=== PATIENT | male | born 1950 | race Caucasian/White ===

== ENCOUNTER 2025-05-08 13:04 | Inpatient (IN) | payer MEDICARE ==
[~2025-05-08] VITALS: Ht 188 cm; Wt 95.7 kg
[2025-05-08 14:04] LABS: PLATELET COUNT (AUTO) 203 K/uL (150-450); RED BLOOD CELL COUNT(AUTO) 4.13 MIL/uL (4.5-6.0); RED CELL DISTRIBUTION WIDTH 14.4 % (11.5-15.0); WHITE BLOOD COUNT (AUTO) 6.6 K/uL (4.3-11.0)
[2025-05-08 14:12] LABS: CALCIUM, SERUM 8.5 mg/dL (8.5-10.1); CREATININE 1.3 mg/dL (0.6-1.3); SODIUM SERUM 142 mmol/L (136-145); UREA NITROGEN, BLOOD 17 mg/dL (7-18)
[2025-05-08 14:20] LABS: INR 1.06 (0.91-1.10)
[2025-05-08 14:25] LABS: ASPARTATE AMINOTRANSFERASE 17 U/L (15-37); NT-PRO BNP 79 pg/mL (0-125); TOTAL PROTEIN, SERUM 8.0 g/dL (6.4-8.2)
[2025-05-08] MEDS: IV NS 0.9% 500 ML BAG IV ONE (14:35)
[2025-05-08] MEDS: CEFEPIME 1 GM in IV D5W 50 ML IV ONE (14:54)
[2025-05-08] MEDS ORDERED: METH40TA PO (15:16)
[2025-05-08] MEDS: VANCOMYCIN 1 GM in IV D5W 250 ML IV ONE (15:25)
[2025-05-08] MEDS: ENOXAPARIN SODIUM 100 MG/ML DISP.SYRIN SQ ONE (15:25)
[2025-05-08 16:00] VITALS: BP 152/80; TEMP 98.2; O2SAT 99
[2025-05-08 16:01] LABS: APPEARANCE,URINE CLEAR (CLEAR); BLOOD, URINE TRACE-INTA Ery/uL (NEGATIVE); LEUKOCYTE ESTERASE ,URINE NEGATIVE (NEGATIVE); NITRITE, URINE NEGATIVE (NEGATIVE); UGLUCOSE NEGATIVE (NEGATIVE)
[2025-05-08 16:26] LABS: ADD URINE CULTURE NO; SQUAMOUS EPITHELIAL CELL,UR Few /HPF (None Seen)
[2025-05-08] MEDS ORDERED: DOSING PER PHARMACY-VANCOMYCIN IV XX PRN (16:30)
[2025-05-08] MEDS ORDERED: MAG HYDROX/AL HYDROX/SIMETH 30 ML UDC PO PRN (16:30)
[2025-05-08] MEDS ORDERED: Z GUARD REMEDY 4 OZ OINT TP PRN (16:30)
[2025-05-08] MEDS ORDERED: ONDANSETRON HCL/PF 4 MG/2 ML VIAL IVP PRN (16:30)
[2025-05-08] MEDS ORDERED: MAGNESIUM HYDROXIDE 30 ML UDC PO PRN (16:30)
[2025-05-08 18:00] VITALS: BP 135/78; TEMP 98.2; O2SAT 99
[2025-05-08] MEDS: VANCOMYCIN 500 MG in IV D5W 100ml IV ONE (18:38)
[2025-05-08 20:00] VITALS: BP 160/73; TEMP 97.7; O2SAT 99
[2025-05-08] MEDS ORDERED: MORPHINE SULFATE INJ 2 MG/ML DISP.SYRIN IV PRN (23:30)
[2025-05-09] MEDS: ACETAMINOPHEN 325 MG TABLET PO PRN (00:14)
[2025-05-09] MEDS: VANCOMYCIN 750 MG in IV D5W 250 ML IV SCH (05:54)
[2025-05-09 06:23] LABS: PLATELET COUNT (AUTO) 142 K/uL (150-450); RED BLOOD CELL COUNT(AUTO) 3.72 MIL/uL (4.5-6.0); RED CELL DISTRIBUTION WIDTH 14.6 % (11.5-15.0); WHITE BLOOD COUNT (AUTO) 4.9 K/uL (4.3-11.0)
[2025-05-09 06:29] LABS: CALCIUM, SERUM 8.3 mg/dL (8.5-10.1); CREATININE 1.1 mg/dL (0.6-1.3); PHOSPHORUS 2.8 mg/dL (2.5-4.9); SODIUM SERUM 140.0 mmol/L (136-145); UREA NITROGEN, BLOOD 15.0 mg/dL (7-18)
[2025-05-09 06:49] LABS: LDL 33.0 mg/dL (0-99)
[2025-05-09 08:00] VITALS: BP 105/69; TEMP 98.1; O2SAT 96
[2025-05-09] MEDS: PANTOPRAZOLE 40 MG TABLET.DR PO SCH (08:29)
[2025-05-09] MEDS: METHADONE HCL 10 MG TABLET PO SCH (08:31)
[2025-05-09] MEDS: ENOXAPARIN SODIUM 100 MG/ML DISP.SYRIN SQ SCH (08:32)
[2025-05-09 16:00] VITALS: BP 106/82; TEMP 98.4; O2SAT 99
[2025-05-09 20:00] VITALS: BP 131/79; TEMP 97.9; O2SAT 95
[2025-05-10 08:00] VITALS: BP 144/82; TEMP 98.6; O2SAT 96
[2025-05-10] MEDS ORDERED: APIXABAN 5 MG TABLET PO SCH (17:00)
[2025-05-10] MEDS ORDERED: ENOXAPARIN SODIUM 100 MG/ML DISP.SYRIN SQ SCH (21:00)
== END 2025-05-10 16:30 | disposition left against medical advice (07) | DRG 300 ==
LOC: ER 13:21 → MED 16:15
PROVIDERS: ADMIT Nurse Practitioner Acute Care; ATTEND Nurse Practitioner Acute Care
DX: I83.228 Varicose veins of left lower extremity with both ulcer of other part of lower extremity and inflammation (principal); I82.412 Acute embolism and thrombosis of left femoral vein; D63.8 Anemia in other chronic diseases classified elsewhere; L03.116 Cellulitis of left lower limb; B35.1 Tinea unguium; F11.21 Opioid dependence, in remission; Z79.01 Long term (current) use of anticoagulants; L97.829 Non-pressure chronic ulcer of other part of left lower leg with unspecified severity; I87.8 Other specified disorders of veins; Z86.718 Personal history of other venous thrombosis and embolism; Z91.148 Patient's other noncompliance with medication regimen for other reason; I89.0 Lymphedema, not elsewhere classified
CPT/HCPCS: 36415; 71045-TC; 80048-TC; 80061-TC; 80076-TC; 80202-TC; 81001; 83605-TC; 83735-TC; 83880; 84100-TC; 84443-TC; 84484-TC; 85025-TC; 85730-TC; 86850-TC; 87040-TC; 87086-TC; 93307-TC; 93970-TC; 97110-TC; 97116-TC; 97530-TC; 97535-TC; A4223; G0378; J0692; J1650; J3373; J3374; J7040; J7060